=== PATIENT | male | born 1985 | race African-American/Black ===

== ENCOUNTER 2020-11-03 05:10 | Inpatient (IN) ==
[2020-11-03] MEDS ORDERED: SODIUM CHLORIDE 0.9% 1,000 ML IV STA (05:38)
[2020-11-03 05:50] LABS: Basophils % 0.4 % (0.0-0.8); Eosinophils # 0.1 10*3/uL (0.0-0.87); Eosinophils % 0.9 % (0.00-10.9); Hematocrit 50.5 VOL% (42.0-52.0); Hemoglobin 16.9 GM/DL (14.0-18.0); Immature Granulocytes % 0.3 %; Immature Granulocytes Absolute 0.03 #; Lymphocytes % 32.3 % (21.2-54.2); Mean Corpuscular HGB Conc 33.5 GM/DL (32-36); Mean Corpuscular Volume 94.2 FL (87-102); Monocytes % 8.8 % (1.7-12.7); Neutrophils % 57.3 % (38.7-73.9); Platelet Count 231 T/CUMM (130-400); Red Blood Count 5.36 MC/CUMM (3.8-5.5); Red Cell Distribution Width 13.2 % (9.3-17.3); White Blood Count 9.3 T/CUMM (4-12)
[2020-11-03 05:57] LABS: ABG Base Excess 0.9 MMOL/L (-2.5-2.5); ABG Oxygen Saturation 91.6 % (95-100); ABG PCO2 39.7 MM HG (35-48); ABG PH 7.414 (7.35-7.45); ABG PO2 63.4 MM HG (80-95)
[2020-11-03 06:12] LABS: Albumin 3.7 G/DL (3.4-5.0); Bilirubin,Total 0.6 MG/DL (0.2-1.0); Calcium 8.8 MG/DL (8.5-10.1); Osmolality,Calculated 268.7 MOS/KG (273-304); Potassium 3.7 MMOL/L (3.5-5.1); Total Protein 8.5 G/DL (5.0-7.5)
[2020-11-03 06:12] LABS: Bacteria,Urine Occasional /HPF (Few); Bilirubin,Urine Negative (Negative); Blood, Urine Negative (Negative); Glucose,Urine (UA) Negative (Negative); Hyaline Casts,Urine 4 /LPF (0-3); Ketones,Urine Negative (Negative); Mucus,Urine Occasional /LPF (Occasional); Nitrite,Urine Negative (Negative); Protein,Urine Negative; RBC,Urine 2 /HPF (0-4); Squamous Epithelial Cell,Urine Occasional /HPF (0-10); Urine Appearance CLEAR (Clear); Urine Color Yellow (Yellow); Urine Specific Gravity 1.012 (1.001-1.035); Urine Urobilinogen < 2.0 EU/DL (0.2-1.0); WBC,Urine 3 /HPF (0-6)
[2020-11-03 06:16] LABS: Salicylate 4.5 MG/DL (2.8-20)
[2020-11-03 06:19] LABS: Acetaminophen < 2.0 UG/ML (10-30)
[2020-11-03] MEDS ORDERED: DEXTROSE 50% 25 GM/50 ML VIAL IV STA (06:19)
[2020-11-03] MEDS ORDERED: DEXTROSE 50% 25 GM/50 ML SYRINGE IV ONE (06:20)
[2020-11-03] MEDS ORDERED: ETOMIDATE 20 MG/10 ML VIAL IV ONE (06:31)
[2020-11-03] MEDS ORDERED: THIAMINE 200 MG/2 ML VIAL IM STA (06:31)
[2020-11-03] MEDS ORDERED: ROCURONIUM 100 MG/10 ML VIAL IV ONE (06:32)
[2020-11-03] MEDS ORDERED: MAGNESIUM SULF RIDER 2 GM in PREMIX 1 EACH IV STA (06:32)
[2020-11-03 06:40] LABS: Barbiturates Screen,Urine Negative (Negative); Benzodiazepines Screen,Urine Negative (Negative); Cannabinoid Screen,Urine Positive (Negative); Opiate Screen,Urine Negative (Negative); Phencyclidine Screen,Urine Negative (Negative)
[2020-11-03] MEDS ORDERED: METOPROLOL TARTRATE 5 MG/5 ML VIAL IV PRN (06:44)
[2020-11-03] MEDS ORDERED: DEXTROSE 50% 25 GM/50 ML VIAL IV PRN (06:47)
[2020-11-03] MEDS ORDERED: GLUCAGON 1 MG VIAL IM PRN (06:47)
[2020-11-03] MEDS ORDERED: ONDANSETRON 4 MG/2 ML VIAL IV PRN (06:48)
[2020-11-03] MEDS ORDERED: ALBUTEROL 2.5 MG/3 ML NEB RESP TX PRN ×2 (06:48)
[2020-11-03] MEDS: cefTRIAXone 1,000 MG in SYRINGE 1 EACH IV SCH (07:25)
[2020-11-03] MEDS: ENOXAPARIN 40 MG/0.4 ML SYRINGE SUBCUT SCH (07:25)
[2020-11-03] MEDS: DEXTROSE 5% NACL 0.9% 1,000 ML IV SCH ×3 (07:30→23:29)
[2020-11-03] MEDS: PANTOPRAZOLE 40 MG VIAL IV SCH (07:30)
[2020-11-03] MEDS ORDERED: cloNIDine 0.3 MG/24 HR PATCH TRANSDERM SCH (09:00)
[2020-11-03] MEDS: INSULIN LISPRO 100 UNIT/ML SUBCUT SCH ×4 (10:20→22:25)
[2020-11-03 12:05] LABS: ABG Base Excess -2.5 MMOL/L (-2.5-2.5); ABG HCO3 21.1 MMOL/L (20-26); ABG Oxygen Saturation 99.5 % (95-100); ABG PCO2 33.5 MM HG (35-48); ABG PH 7.418 (7.35-7.45); ABG PO2 438.7 MM HG (80-95); ABG TCO2 22.2 MMOL/L (23-27)
[2020-11-03] MEDS ORDERED: INFLUENZA VIRUS VACCINE 0.5 ML SYRINGE IM ONE (16:13)
[2020-11-04] MEDS: INSULIN LISPRO 100 UNIT/ML SUBCUT SCH ×3 (02:04→11:29)
[2020-11-04 04:43] LABS: ABG Base Excess -0.2 MMOL/L (-2.5-2.5); ABG HCO3 23.5 MMOL/L (20-26); ABG PCO2 35.9 MM HG (35-48); ABG PH 7.434 (7.35-7.45); ABG PO2 158.3 MM HG (80-95); ABG TCO2 24.6 MMOL/L (23-27)
[2020-11-04 05:12] LABS: Alanine Aminotransferase < 9 U/L (16-61); Albumin 2.8 G/DL (3.4-5.0); Alkaline Phosphatase 69 U/L (45-117); Aspartate Amino Transferase 11 U/L (0-37); Blood Urea Nitrogen 3 MG/DL (7-18); Carbon Dioxide 23 MMOL/L (21-32); Estimated Glom Filtration Rate 154 ML/MIN; Glucose 112 MG/DL (74-106); Osmolality,Calculated 270.8 MOS/KG (273-304); Potassium 3.9 MMOL/L (3.5-5.1); Sodium 137 MMOL/L (136-145); Total Protein 6.7 G/DL (5.0-7.5)
[2020-11-04 05:13] LABS: Troponin I 0.092 NG/ML (0.00-0.045)
[2020-11-04] MEDS: PANTOPRAZOLE 40 MG VIAL IV SCH (06:26)
[2020-11-04] MEDS: ENOXAPARIN 40 MG/0.4 ML SYRINGE SUBCUT SCH (06:27)
[2020-11-04] MEDS: cefTRIAXone 1,000 MG in SYRINGE 1 EACH IV SCH (06:28)
[2020-11-04] MEDS ORDERED: LORazepam 2 MG/1 ML VIAL IV PRN (07:49)
[2020-11-04] MEDS: DEXTROSE 5% NACL 0.9% 1,000 ML IV SCH (08:46)
[2020-11-04] MEDS ORDERED: NICOTINE 21 MG/24 HR PATCH TRANSDERM PRN (14:26)
[2020-11-05 04:26] LABS: Basophils % 0.3 % (0.0-0.8); Eosinophils # 0.1 10*3/uL (0.0-0.87); Eosinophils % 0.8 % (0.00-10.9); Hematocrit 42.7 VOL% (42.0-52.0); Hemoglobin 13.8 GM/DL (14.0-18.0); Immature Granulocytes % 0.4 %; Immature Granulocytes Absolute 0.04 #; Lymphocytes # 2.4 10*3/uL (1.4-4.0); Lymphocytes % 25.6 % (21.2-54.2); Mean Corpuscular HGB Conc 32.3 GM/DL (32-36); Mean Corpuscular Volume 97.3 FL (87-102); Mean Platelet Volume 10.2 FL (9.6-12.0); Monocytes % 7.7 % (1.7-12.7); Neutrophils % 65.2 % (38.7-73.9); Platelet Count 155 T/CUMM (130-400); Red Blood Count 4.39 MC/CUMM (3.8-5.5); Red Cell Distribution Width 13.1 % (9.3-17.3); White Blood Count 9.2 T/CUMM (4-12)
[2020-11-05 04:40] LABS: Calcium 8.3 MG/DL (8.5-10.1); Osmolality,Calculated 274.5 MOS/KG (273-304)
[2020-11-05] MEDS: ENOXAPARIN 40 MG/0.4 ML SYRINGE SUBCUT SCH (06:17)
[2020-11-05] MEDS: cefTRIAXone 1,000 MG in SYRINGE 1 EACH IV SCH (06:17)
[2020-11-05] MEDS ORDERED: PANTOPRAZOLE 40 MG TABLET PO SCH (09:00)
[2020-11-05 11:48] VITALS: BP 138/73
[2020-11-05 12:15] LABS: Troponin I 0.017 NG/ML (0.00-0.045)
== END 2020-11-05 15:50 | disposition home or self-care (01) | DRG 917 ==
LOC: N.ED 05:10 → SUATTDRO 06:40 → N.EDINP 06:40 → N.ICU 14:31 → N.5E 11-04 16:46
PROVIDERS: ADMIT Internal Medicine; ATTEND Internal Medicine